=== PATIENT | female | born 1965 | race Caucasian/White ===

== ENCOUNTER → 2016-09-21 16:16 | Outpatient (CLI) | payer OTHER | END | disposition home or self-care (01) | LOC: D.MRI 16:16 | DX: C76.3 Malignant neoplasm of pelvis (principal) ==

== ENCOUNTER 2017-04-24 13:21 | Inpatient (IN) | payer OTHER ==
[~2017-04-24] VITALS: Ht 157.5 cm; Wt 77.6 kg
[2017-04-24 15:00] LABS: APPEARANCE CLEAR (CLEAR); BILIRUBIN NEGATIVE (NEGATIVE); COLOR YELLOW (YELLOW); GLUCOSE NEGATIVE (NEGATIVE); KETONE NEGATIVE (NEGATIVE); LEUKOCYTE ESTERASE NEGATIVE (NEGATIVE); NITRITE NEGATIVE (NEGATIVE); PROTEIN NEGATIVE (NEGATIVE); UROBILINOGEN NORMAL (NORMAL)
[2017-04-24 15:27] LABS: BASOPHILS 0.4 % (0-2); EOSINOPHILS 1.7 % (0-7); HEMATOCRIT 39.5 % (36.0-48.0); HEMOGLOBIN 13.3 g/dL (12-16); LYMPHOCYTES 39.7 % (15-50); MCHC 33.7 g/dL (31.0-37.0); MEAN PLATELET VOLUME 9.8 fL (7.4-10.4); MONOCYTES 9.5 % (2-11); NEUTROPHILS 48.7 % (40-80); PLATELET COUNT 220 10x3/uL (130-400); RBC 4.16 10x6/uL (4.00-5.40); RDW 12.7 % (11.5-14.5); WBC 4.6 10x3/uL (4.8-10.8)
[2017-04-24 15:48] LABS: ALBUMIN 3.7 g/dL (3.4-5.0); ANION GAP 11.7 mmol/L (8-16); BILIRUBIN - TOTAL 0.44 mg/dL (0.2-1.3); CALCIUM 8.8 mg/dL (8.5-10.1); POTASSIUM - SERUM 3.7 mmol/L (3.5-5.1); PROTEIN - SERUM 7.2 g/dL (6.4-8.2)
[2017-04-24 20:00] VITALS: BP 117/80
--- NOTE | 2017-04-24 20:10 | NUR ---
REC'D PT FROM ER. NO VISIBLE SIGNS OF DISTRESS AND PATIENT DENIES NEEDS AT THIS TIME. BED IN LOWEST POSITION AND CALL LIGHT WITHIN REACH. ENCOOURAGED THE PATIENT TO CALL IF SHE HAS NEEDS.
[2017-04-24] MEDS ORDERED: TOPAMAX100 MG PO (23:00)
[2017-04-24] MEDS ORDERED: LAMICTAL200 MG PO (23:00)
[2017-04-24] MEDS ORDERED: ZOLOFT50 MG PO (23:01)
[2017-04-24 23:06] VITALS: BP 117/80; BMI 31.3
[2017-04-25] VITALS: BP 97/54
--- NOTE | 2017-04-25 00:45 | NUR ---
SPOKE WITH TEJAL, ROCK MASON APPRENTICE IN REGARDS TO GETTING SUPPLIES FOR CONTINUOUS BLADDER IRRIGATION
--- NOTE | 2017-04-25 02:52 | NUR ---
STARTED CONT BLADDER IRRIGATION PER ORDERS
[2017-04-25 04:00] VITALS: BP 90/53
[2017-04-25 08:09] VITALS: BP 94/51
--- NOTE | 2017-04-25 08:14 | NUR ---
Patient Name: NESS Bowers SEE Admission Status: ER Accout number: [id number] Admission Date: 04-24-2017 : 1965 Admission Diagnosis: Attending: KATHLEEN STEWARD Current LOS: 1 Anticipated DC Date: 04-27-2017 Planned Disposition: Home Primary Insurance: [facility] Discharge Planning Comments: CM MET WITH PATIENT REGARDING D/C NEEDS AND PLANS. PATIENT STATED SHE LIVES WITH HER BOYFRIEND AND HE OR HER MOTHER (DEANDRE) WILL DRIVE HER HOME AT DISCHARGE. PATIENT STATED THERE ARE 4 STEPS W/RAILS TO ENTER HOME AND NO STAIRS INSIDE. PATIENT IS INDEPENDENT WITH HER CARE AND HAS NO DME AT HOME. PATIENTS PCP IS DR. DAMON AND PHARMACY IS [facility]. PATIENT DID NOT WANT HOME HEALTH AT THIS TIME. CM WILL CONTINUE TO FOLLOW PATIENT WITH D/C NEEDS AND PLANS. PCP DR[facility]- [phone] DEANDRE NARANJO ([facility] [place]) [phone] [employer] Gate: Martina Ugarte Is the patient Alert and Oriented? Yes 0 * How many steps to enter\exit or inside your home? 4 0 * PCP DR. DAMON 0 * [facility] 0 * Preadmission Environment Home with Family 0 * ADLs Independent 0 * Equipment None 0 * List name and contact numbers for known caregivers / representatives who currently or will assist patient after discharge: DEANDRE NARANJO ([facility] [place]) [phone] 0 * Community resources currently utilized None 0 * Additional services required to return to the preadmission environment? Yes 0 * Can the patient safely return to the preadmission environment? Yes 0 * Has this patient been hospitalized within the prior 30 days at any hospital? No 0 Grand Total: 0
--- NOTE | 2017-04-25 08:15 | NUR ---
ASSESSMENT COMPLETE. SL'S TO R HAND AND L AC. MATTHEWS PATENT DRAINING YELLOW URINE. CONT IRRIGATION IN USE TO MATTHEWS CATHETER. DENIES ANY NEEDS AT THIS TIME.
[2017-04-25 09:44] LABS: EOSINOPHILS 2.8 % (0-7); HEMATOCRIT 37.7 % (36.0-48.0); HEMOGLOBIN 12.6 g/dL (12-16); IMMATURE GRANULOCYTES 0.3 % (0-5); LYMPHOCYTES 34.3 % (15-50); MCH 31.7 pg (26.0-34.0); MCHC 33.4 g/dL (31.0-37.0); MEAN PLATELET VOLUME 9.7 fL (7.4-10.4); NEUTROPHILS 51.6 % (40-80); PLATELET COUNT 195 10x3/uL (130-400); RBC 3.97 10x6/uL (4.00-5.40); RDW 12.8 % (11.5-14.5)
[2017-04-25 09:58] LABS: ALBUMIN 3.4 g/dL (3.4-5.0); BILIRUBIN - TOTAL 0.44 mg/dL (0.2-1.3); CALCIUM 8.5 mg/dL (8.5-10.1); CARBON DIOXIDE 25.8 mmol/L (21.0-32.0); POTASSIUM - SERUM 3.8 mmol/L (3.5-5.1); PROTEIN - SERUM 6.7 g/dL (6.4-8.2)
--- NOTE | 2017-04-25 11:15 | NUR ---
RESTING QUIETLY AT THIS TIME. URINE CONTINUES TO BE YELLOW WITH NO BLOOD OR CLOTS NOTED. WANTING TO HAVE PERCOCET INSTEAD OF NORCO. REPORTS THAT NORCO CAUSES ITCHING AND PERCOCET DOES NOT.
[2017-04-25 12:27] VITALS: BP 121/52
[2017-04-25 13:31] VITALS: Ht 157.5 cm; Wt 77.6 kg
[2017-04-25 16:24] VITALS: BP 100/50
[2017-04-25 20:00] VITALS: BP 100/57
[2017-04-26] VITALS: BP 91/41
[2017-04-26 04:00] VITALS: BP 101/50
--- NOTE | 2017-04-26 04:05 | NUR ---
EYES CLOSED RESPIRATIONS WITH EAS AND UNLABORED. SR UP X2 CALL LIGHT WITHIN REACH.
[2017-04-26 05:02] LABS: BASOPHILS 0.3 % (0-2); EOSINOPHILS 1.2 % (0-7); HEMATOCRIT 39.1 % (36.0-48.0); HEMOGLOBIN 12.8 g/dL (12-16); IMMATURE GRANULOCYTES 0.1 % (0-5); LYMPHOCYTES 15.3 % (15-50); MCH 31.4 pg (26.0-34.0); MCHC 32.7 g/dL (31.0-37.0); MCV 95.8 fL (80.0-100.0); MONOCYTES 10.1 % (2-11); PLATELET COUNT 213 10x3/uL (130-400); RBC 4.08 10x6/uL (4.00-5.40); RDW 12.7 % (11.5-14.5)
[2017-04-26 05:11] LABS: WBC 7.7 10x3/uL (4.8-10.8)
[2017-04-26 05:13] LABS: ALBUMIN 3.4 g/dL (3.4-5.0); ANION GAP 10.9 mmol/L (8-16); BILIRUBIN - TOTAL 0.37 mg/dL (0.2-1.3); CALCIUM 8.6 mg/dL (8.5-10.1); CARBON DIOXIDE 24.9 mmol/L (21.0-32.0); CREATININE - SERUM 1.1 mg/dL (0.6-1.3); POTASSIUM - SERUM 3.8 mmol/L (3.5-5.1); PROTEIN - SERUM 6.8 g/dL (6.4-8.2)
[2017-04-26 08:02] VITALS: BP 115/66
--- NOTE | 2017-04-26 08:20 | NUR ---
ASSESSMENT COMPLETE. SL TO R HAND AND L AC PATENT. NPO FOR PROCEDURE TODAY. MATTHEWS PATENT DRAINING CLEAR YELLOW URINE. CONT IRRIGATION IN USE TO MATTHEWS. SCD'S IN USE TO BILAT LEGS. 2+ EDEMA NOTED TO BLE.
--- NOTE | 2017-04-26 08:45 | NUR ---
TEMP 102.[address] GAGNON NOTIFIED. ORDER RECEIVED FOR TYLENOL SUPP AND BLOOD CULTURES X2.
--- NOTE | 2017-04-26 09:09 | NUR ---
DRY HEAVING AND COMPLAINING OF NAUSEA. ZOFRAN GIVEN SLOW IVP.
--- NOTE | 2017-04-26 10:00 | NUR ---
TEMP 98.[address] MEEKS NOTIFIED OF THIS AM'S FEVER. ORDERS RECEIVED TO DC BLADDER IRRIGATION AND OBTAIN URINE CULTURE. WILL HOLD OFF ON SURGERY AT THIS TIME. OR AND PATIENT NOTIFIED.
[2017-04-26 12:21] VITALS: BP 110/69
--- NOTE | 2017-04-26 13:00 | NUR ---
SL TO L AC REMOVED PER PATIENT REQUEST. CATHETER TIP INTACT. VISITING WITH FAMILY.
--- NOTE | 2017-04-26 13:30 | NUR ---
MATTHEWS CATHETER DC'D. CATHETER TIP INTACT.
[2017-04-26 16:01] VITALS: BP 95/57
--- NOTE | 2017-04-26 17:00 | NUR ---
DENIES ANY NEEDS AT PRESENT.
[2017-04-26 20:00] VITALS: BP 101/65
--- NOTE | 2017-04-26 23:53 | NUR ---
2029)REC'D IN BED WATCHING TV.REQUESTING PERCOCET ONE GIVEN PO FOR C/O LOWER ABD PAIN RATES PAIN 6 ON 1-10 PAIN SCALE
--- NOTE | 2017-04-26 23:56 | NUR ---
PATIENT IS RESTING QUIETLY WITH EYES CLOSED. LAYING ON HER RIGHT SIDE. NO SIGNS OF DISTRESS NOTED. BED IN LOWEST POSITION, CALL LIGHT IN REACH. BED RAILS UP X'S 2.
[2017-04-27] VITALS: BP 103/65
[2017-04-27 04:00] VITALS: BP 101/43
[2017-04-27 06:07] LABS: BASOPHILS 0.4 % (0-2); EOSINOPHILS 1.5 % (0-7); HEMATOCRIT 37.3 % (36.0-48.0); HEMOGLOBIN 12.3 g/dL (12-16); LYMPHOCYTES 31.3 % (15-50); MCH 31.8 pg (26.0-34.0); MCV 96.4 fL (80.0-100.0); MONOCYTES 11.8 % (2-11); PLATELET COUNT 176 10x3/uL (130-400); RBC 3.87 10x6/uL (4.00-5.40); RDW 12.7 % (11.5-14.5)
[2017-04-27 06:12] LABS: WBC 5.4 10x3/uL (4.8-10.8)
[2017-04-27 06:56] LABS: ALBUMIN 3.1 g/dL (3.4-5.0); ANION GAP 11.5 mmol/L (8-16); BILIRUBIN - TOTAL 0.39 mg/dL (0.2-1.3); CALCIUM 8.5 mg/dL (8.5-10.1); CARBON DIOXIDE 25.2 mmol/L (21.0-32.0); POTASSIUM - SERUM 3.7 mmol/L (3.5-5.1); PROTEIN - SERUM 6.7 g/dL (6.4-8.2)
--- NOTE | 2017-04-27 07:55 | NUR ---
PT AOX4 RESP EVEN AND NONLABORED PT DENIES NEEDS AT THIS TIME IV TO RIGHT HAND PATENT AND INTACT AT THIS TIME SRX2 BED AT LOWEST SETTING CALL LIGHT WITHIN REACH WILL CONTINUE TO MONITOR
[2017-04-27 07:58] VITALS: BP 110/66
[2017-04-27 12:24] VITALS: BP 116/72
--- NOTE | 2017-04-27 12:54 | NUR ---
NUTRITION F/U CHART REVIEWED. REG DIET WITH 75% INTAKE RECENT MEALS. NOTE POSSIBLE DC. WILL CONTINUE TO PROVIDE DIET, HONOR FOOD PREFERENCES. RD FOLLOWING
[2017-04-27] MEDS ORDERED: Levaquin PREMIX IV (14:02)
[2017-04-27] MEDS ORDERED: FLORAJEN3 CAPS460 MG PO (14:02)
[2017-04-27] MEDS ORDERED: COLACE100 MG PO (14:02)
[2017-04-27] MEDS ORDERED: DULCOLAX5 MG PO (14:02)
[2017-04-27] MEDS ORDERED: ZOFRAN ODT4 MG/UDTAB PO (14:03)
[2017-04-27] MEDS ORDERED: LEVAQUIN750 MG PO (14:03)
[2017-04-27] MEDS ORDERED: PERCOCET 7.5/321 TAB PO (14:04)
--- NOTE | 2017-04-27 15:11 | NUR ---
CM REASSESSMENT NOTE: PATIENT IS DISCHARGING HOME TODAY/SPOUSE DRIVING. PATIENT REFUSED HOME HEALTH AND HAD NO OTHER NEEDS.
[2017-04-27 15:27] VITALS: BP 107/67
--- NOTE | 2017-04-27 17:14 | NUR ---
PT GIVEN DISCHARGE INSTRUCTIONS AND TWO PAPER PRESCRIPTIONS AT THIS TIME IV DISCONTINUED WITH CATHETER INTACT AT THIS TIME PT TAKEN VIA WHEELCHAIR TO PRIVATE VEHICLE
== END 2017-04-27 17:15 | disposition home or self-care (01) | DRG 694 ==
LOC: D.ER 13:21 → D.MS 19:14
PROVIDERS: Emergency Medicine; Physician Assistant Medical; ADMIT Family Medicine Adult Medicine
DX: N21.0 Calculus in bladder (principal); R31.0 Gross hematuria; K21.9 Gastro-esophageal reflux disease without esophagitis; G40.909 Epilepsy, unspecified, not intractable, without status epilepticus; Z85.41 Personal history of malignant neoplasm of cervix uteri; Z92.3 Personal history of irradiation

== ENCOUNTER → 2017-05-08 12:04 | Day surgery (SDC) | payer OTHER ==
[~2017-05-08] VITALS: Ht 157.5 cm; Wt 78.9 kg
[~2017-05-08 12:04] MED LIST: COLACE100 MG PO; DULCOLAX5 MG PO; FLORAJEN3 CAPS460 MG PO; LAMICTAL200 MG PO; LEVAQUIN750 MG PO; Levaquin PREMIX IV; PERCOCET 7.5/321 TAB PO; TOPAMAX100 MG PO; ZOFRAN ODT4 MG/UDTAB PO; ZOLOFT50 MG PO
[2017-05-08 13:44] VITALS: BP 101/63; Ht 157.5 cm; Wt 78.9 kg
[2017-05-08 14:15] LABS: APTT 23.6 SECONDS (22.8-39.4); INR 0.94 (0.85-1.17); PROTIME 12.4 SECONDS (11.6-15.0)
[2017-05-08 14:17] LABS: BASOPHILS 0.6 % (0-2); EOSINOPHILS 1.5 % (0-7); HEMATOCRIT 35.9 % (36.0-48.0); HEMOGLOBIN 12.2 g/dL (12-16); IMMATURE GRANULOCYTES 0.2 % (0-5); LYMPHOCYTES 32.6 % (15-50); MCH 31.9 pg (26.0-34.0); MEAN PLATELET VOLUME 9.9 fL (7.4-10.4); MONOCYTES 10.7 % (2-11); NEUTROPHILS 54.4 % (40-80); RBC 3.82 10x6/uL (4.00-5.40); RDW 12.9 % (11.5-14.5); WBC 5.4 10x3/uL (4.8-10.8)
[2017-05-08 14:18] LABS: PLATELET COUNT 237 10x3/uL (130-400)
--- NOTE | 2017-05-08 18:08 | NUR ---
PORT FLUSHED WITH HEPRIN AND SALINE AND REMOVED PER HOSPITAL PROTOCAL
--- NOTE | 2017-05-09 14:43 | OP ---
PATIENT NAME: NESS TIDWELL MEDICAL RECORD: [id number] :[birth year] LOCATION:D.OPS ADMISSION DATE: SURGEON: ERICA MEEKS MD DATE OF OPERATION: 05/08/2017 SURGEON: Erica Meeks MD ANESTHESIA: General anesthesia by Shelia Orozco CRNA PREOPERATIVE DIAGNOSES: Gross hematuria, urethral stricture, bladder stones, and recurrent urinary tract infections. PROCEDURES: Cystoscopy, urethral stricture dilation to 36-Azerbaijani, bladder stone removal using the Perc NCircle basket, and Schuster catheter insertion. FINDINGS: Urethral stricture. Single ureteral orifices bilaterally. Two large bladder stones and one tiny speck of stone noted in the bladder. No bladder tumors. Trabeculated bladder from bladder outlet obstruction. Inflamed bladder with neovascularity from radiation cystitis. SPECIMEN: Bladder stones. BLOOD LOSS: Minimal. CLINICAL HISTORY: This is a 51-year-old female who has a history of cervical cancer. She has been treated with LOIS-BSO as well as pelvic radiation and chemotherapy. She may have a positive Pap smear on her most recent examination. She was admitted to hospital with gross hematuria. She was found to have an infection with strep bacteria. She is currently on antibiotics to control the infection. Imaging showed that she has stones in the bladder. These stones are infected and they need to be removed in order for her to clear the infection. Also, we need to determine the cause of her gross hematuria. SHE IS ALLERGIC TO MULTIPLE PAIN MEDICATIONS. She was given Ancef coding consultant to the OR. DESCRIPTION OF PROCEDURE: The patient was given induction of general anesthesia. She was placed in the dorsal lithotomy position and prepped and draped. A 21-Azerbaijani cystoscope with 30-degree lens was used for visualization. Findings are as outlined above. The stones were visible. There were 2 large stones, one seems to be about 1 cm in size and the other one is about 2 cm in size. On the dome of the bladder, there is also a very tiny little speck, about 2 mm in size, stuck to the lateral wall. No bladder tumors were seen. The bladder has trabeculation, indicative of bladder outlet obstruction. There are also areas of neovascularity, which are consistent with radiation cystitis. The scope was removed and sounds were used to dilate the urethra to 36-Azerbaijani. The scope was then reintroduced and the Perc NCircle basket was introduced beside the scope. The scope was used to direct the Perc NCircle basket to the stone. Once the stone was entrapped within the basket, the scope was removed. The Perc NCircle basket with the stone within it was removed by pulling it out through the urethra. In this, were the 2 bladder stones of the largest size, removed immediately. The little tiny third remaining stone was too small to be removed with the Perc NCircle. We put flexible graspers on it and removed it. All the stone specimens were placed in a cup to be sent to pathology for stone analysis. Because of the issues with bleeding that she has been having even now, I inserted a 20-Azerbaijani 3-way Schuster catheter in case she will need continuous bladder irrigation in the future. The balloon was inflated with 10 mL of OPERATIVE REPORT [id number] SEE,NESS RENE sterile water. The inflow port was capped and the catheter was put to bag drainage. She will go home with the catheter. I will see her in followup in about 3 days' time. If she has no further bleeding, then we can remove the catheter. If she has ongoing issues with bleeding, she should probably be referred to hyperbaric treatment center. TRANSINT:[id number] Voice Confirmation ID: [id number] DOCUMENT ID: [id number] ERICA MEEKS MD at 1443 CC: [id number] DICTATION DATE: 05/08/17 1605 PILLOWCASE TURNER: 05/08/171956 [facility] 05/08/17 [facility] [address] [place] [address]
== END | disposition home or self-care (01) ==
LOC: D.OPS 12:04
PROVIDERS: Anesthesiology; Urology
DX: N21.0 Calculus in bladder (principal); R31.0 Gross hematuria; N35.9 Urethral stricture, unspecified; G40.909 Epilepsy, unspecified, not intractable, without status epilepticus; Z01.812 Encounter for preprocedural laboratory examination

== ENCOUNTER → 2017-05-31 16:27 | Outpatient (CLI) | payer OTHER ==
[2017-05-08 13:44] VITALS: BMI 31.9
== END | disposition home or self-care (01) ==
LOC: D.LAB 16:27
DX: N21.0 Calculus in bladder (principal)

== ENCOUNTER → 2017-06-08 18:22 | Outpatient (CLI) | payer OTHER ==
[2017-05-08 13:44] VITALS: BMI 31.9
== END | disposition home or self-care (01) ==
LOC: D.LABREF 18:22
DX: D72.829 Elevated white blood cell count, unspecified (principal)